=== PATIENT | female | born 1945 | race Caucasian/White ===

== ENCOUNTER 2017-05-23 12:32 | Emergency (ER) | payer SELFPAY ==
[~2017-05-23] VITALS: Ht 162.6 cm; Wt 53.5 kg
[2017-05-23] MEDS ORDERED: IBANDRONATE (13:05)
[2017-05-23] MEDS ORDERED: TIOT18CA3 IH (13:05)
[2017-05-23] MEDS ORDERED: BECL8.7A6 IH (13:05)
[2017-05-23] MEDS ORDERED: TDAP DIPH,PERTUSS,TET VAC/PF 0.5 ML DISP.SYRIN IM ONE ×2 (14:00→14:22)
--- NOTE | 2017-05-23 14:14 | NUR ---
Patient discharged to home in stable conditon. Written and verbal after care instructions given. Patient verbalizes understanding of instructions.pt walks in steady gait, pt with daughter.
[2017-05-23 14:23] VITALS: BP 162/92
== END 2017-05-23 14:17 | disposition home or self-care (01) ==
LOC: ER 12:34
DX: S81.812A Laceration without foreign body, left lower leg, initial encounter (principal); J45.909 Unspecified asthma, uncomplicated; W22.03XA Walked into furniture, initial encounter; Y93.89 Activity, other specified; Y92.89 Other specified places as the place of occurrence of the external cause; Y99.8 Other external cause status
CPT/HCPCS: 12002; 90471; 90715; 99283; A4217; A4663